=== PATIENT | female | born 1990 | race African-American/Black ===

== ENCOUNTER 2025-10-16 07:47 | Day surgery (SDC) | payer MEDICAID ==
[2025-10-13 08:43] LABS: IMMATURE GRANULOCYTE ABSOLUTE 0.02 K/uL (0-1); NUCLEATED RED BLOOD CELLS 0.0 % (0.0-0.19); PLATELET COUNT (AUTO) 276 K/uL (130-400); RED BLOOD CELL COUNT(AUTO) 3.65 MIL/uL (4.00-5.50); RED CELL DISTRIBUTION WIDTH 14.0 % (11.0-15.5); WHITE BLOOD COUNT (AUTO) 5.6 K/uL (4.8-10.8)
[2025-10-13 08:54] VITALS: BP 150/81; PULSE 80; RESP 18; TEMP 97.9
[2025-10-13 08:56] LABS: INR 0.97 (0.85-1.15)
[2025-10-13 08:57] LABS: CREATININE 0.8 mg/dL (0.5-1.0); GLOMERULAR FILTR. RATE CALC 98.0 mL/min (>90); GLUCOSE,RANDOM 112.0 mg/dL (70-105); SODIUM SERUM 141.0 mmol/L (136-145); UREA NITROGEN, BLOOD 12.0 mg/dL (7-18)
[2025-10-16] VITALS (17 sets, daily range): BP systolic 118–144; BP diastolic 47–73; PULSE 78–89; RESP 14–22; TEMP 97.2–98.5
[~2025-10-16] VITALS: Ht 177.8 cm; Wt 144.8 kg
[~2025-10-16 07:47] MED LIST: IBUP-2784 PO; TRAM100C2 PO
[2025-10-16] MEDS ORDERED: LIDOCAINE PF 100MG/5ML (2%) SYRINGE 5ML ONE (07:56)
[2025-10-16] MEDS ORDERED: GLYCOPYRROLATE 0.2 MG/ML 5 ML VIAL ONE (07:57)
[2025-10-16] MEDS ORDERED: SUCCINYLCHOLINE CHLORIDE 20 MG/ML 10 ML VIAL ONE (07:57)
[2025-10-16] MEDS ORDERED: NEOSTIGMINE METHYLSULFATE 1MG/ML IV ONE (07:57)
[2025-10-16] MEDS ORDERED: MIDAZOLAM HCL 1 MG/ML 2ML VIAL ONE (08:00)
[2025-10-16] MEDS ORDERED: SUGAMMADEX SODIUM 200 MG/2 ML VIAL IV ONE (08:13)
[2025-10-16] MEDS ORDERED: FAMOTIDINE 20MG VIAL IV ONE (08:14)
[2025-10-16] MEDS: CLINDAMYCIN IVPB 900MG/50ML 50 ML IV ONE (09:07)
[2025-10-16] MEDS: LACTATED RINGERS 1000ML 1,000 ML IV ONE (09:08)
[2025-10-16] MEDS: INDOCYANINE GREEN 25 MG VIAL IJ ONE (09:20)
[2025-10-16] MEDS ORDERED: INDOCYANINE GREEN 25 MG VIAL IJ ONE (09:23)
[2025-10-16] MEDS: CLINDAMYCIN 900MG/6ML INJ IJ ONE (10:00)
[2025-10-16] MEDS ORDERED: PROMETHAZINE HCL 25 MG/ML 1ML AMPULE IM PRN (11:30)
--- NOTE | 2025-10-16 12:14 | NUR ---
4 INCISIONS TO ANTERIOR ABDOMEN. DERMABOND TO 4 INCISIONS. NO ACTIVE BLEEDING OR DRAINAGE NOTED. NO REDNESS OR SWELLING NOTED. ALL 4 INCISIONS DRY AND INTACT.
--- NOTE | 2025-10-24 18:42 | OP ---
Operative Note: DATE OF PROCEDURE: 10/17/25 SURGEON: LYSSA HARRIS MD WELL BLOWER: [] ANESTHESIA: [] General ANESTHESIOLOGIST/ADVICE NURSE: [] PREOPERATIVE DIAGNOSIS: [] Cholecystitis POSTOPERATIVE DIAGNOSIS: [] The same SYNOPSIS: [] PROCEDURE: [] Robotic cholecystectomy ESTIMATED BLOOD LOSS: [] Minimal INDICATIONS: [] DESCRIPTION OF PROCEDURE: []With the patient prepped and draped we did a supraumbilical incision. Using direct technique I placed a balloon trocar. Two da Raghu trochars were placed in each side of the abdomen under direct vision. A nother 8 mm Daivinci trochar was placed in the right lateral side. I then went to the console and the robot was docked. I took all adhesions from the gallbladder and I started dissecting the triangle of Calot. we used firefly to identify the cystic duct and CBD.The cystic duct and the cystic artery were clearly identified and both were double clipped and divided. I took the gallbladder from below using cautery dissection. After the gallbladder was completely removed and adequate hemostasis was obtained I remove all the instruments from the abdomen. I undocked the robot and I came back to the bedside of the patient. I confirm hemostasis suction and irrigate and I placed the gallbladder in a bag. I injected 40 cc of Marcaine 0.25% as an abdominal tap block under direct vision. I injected 20 cc in each side of the abdomen. I took out all the trochars under direct vision and the gallbladder through the supraumbilical incision. I closed the fascia of the supraumbilical incision with a 0 Vicryl [id number]. All incisions were closed with 4-0 Monocryl and Dermabond The patient was transferred stable to the recovery room. LYSSA HARRIS MD Oct 24, 2025 18:42
== END 2025-10-16 12:44 | disposition home or self-care (01) ==
LOC: DAH 07:47
PROVIDERS: ATTEND Surgery
DX: K80.12 Calculus of gallbladder with acute and chronic cholecystitis without obstruction (principal); E78.5 Hyperlipidemia, unspecified; M81.0 Age-related osteoporosis without current pathological fracture; E66.01 Morbid (severe) obesity due to excess calories; Z68.41 Body mass index [BMI] 40.0-44.9, adult; Z88.0 Allergy status to penicillin; Z88.1 Allergy status to other antibiotic agents; Z79.01 Long term (current) use of anticoagulants; Z79.899 Other long term (current) drug therapy
CPT/HCPCS: 80048; 85025; 85610; 36415; 47563; 81025; 88304; A6260; A4663; J7030; J7120; J1308; J3010 ×3; J1100; J0330; J0665 ×2; J3490 ×4; J2003; J2250; J2704; J2405 ×2; J2710; C1769; A4930 ×2; A4215; A4213; A4222; A4221; A4216; A4223 ×2; S2900